=== PATIENT | female | born 1955 | race Two or more races ===

== ENCOUNTER 2024-05-29 10:58 | Inpatient (IN) | payer MEDICARE, OTHER ==
[~2024-05-29] VITALS: Ht 154.9 cm; Wt 79.4 kg
[2024-05-29 12:28] LABS: APPEARANCE,URINE CLEAR (CLEAR); BILIRUBIN,URINE NEGATIVE (NEGATIVE); BLOOD, URINE 1+ Ery/uL (NEGATIVE); COLOR,URINE YELLOW (YELLOW); KETONES,URINE NEGATIVE (NEGATIVE); LEUKOCYTE ESTERASE ,URINE NEGATIVE (NEGATIVE); NITRITE, URINE NEGATIVE (NEGATIVE); PH,URINE 6.5 (5.0-8.0); PROTEIN,URINE NEGATIVE (NEGATIVE); UGLUCOSE NEGATIVE (NEGATIVE); UROBILINOGEN,URINE 0.2 EU/dL (0.2)
[2024-05-29 12:30] LABS: ADD URINE CULTURE NO; BACTERIA,URINE Rare /HPF (None Seen); RBC,URINE 0-2 /HPF (0-2); SQUAMOUS EPITHELIAL CELL,UR Rare /HPF (None Seen); WBC,URINE 0-2 /HPF (0-3)
[2024-05-29 12:44] LABS: BASOPHILS % (AUTO) 0.3 % (0.0-2.0); EOSINOPHILS % (AUTO) 0.4 % (0.0-6.0); HEMATOCRIT 37 % (33-45); HEMOGLOBIN 12.7 g/dL (11.5-14.8); LYMPHOCYTES # (AUTO) 1.4 K/uL (0.8-4.8); LYMPHOCYTES % (AUTO) 16.3 % (20.0-44.0); MEAN CORPUSCULAR HEMOGLOBIN 30 PG (26.0-33.0); MEAN CORPUSCULAR HGB CONC 34 g/dl (31.0-36.0); MEAN CORPUSCULAR VOLUME 87 fL (82-100); MONOCYTES # (AUTO) 0.4 K/uL (0.1-1.30); MONOCYTES % (AUTO) 4.3 % (2.0-12.0); NEUTROPHILS # (AUTO) 6.9 K/uL (1.8-8.9); NEUTROPHILS % (AUTO) 78.7 % (43.0-81.0); PLATELET COUNT (AUTO) 222 K/uL (150-450); RED BLOOD CELL COUNT(AUTO) 4.26 MIL/uL (4.0-5.2); RED CELL DISTRIBUTION WIDTH 13.3 % (11.5-15.0); WHITE BLOOD COUNT (AUTO) 8.7 K/uL (4.3-11.0)
[2024-05-29 12:53] LABS: LACTIC ACID 1.3 mmol/L (0.4-2.0)
[2024-05-29 12:54] LABS: INR 1.04 (0.91-1.10); PARTIAL THROMBOPLASTIN TIME 24.8 SEC (24.3-34.3)
[2024-05-29 12:59] LABS: ALANINE AMINOTRANSFERASE 25 U/L (12-78); ALBUMIN 3.4 g/dL (3.4-5.0); ALKALINE PHOSPHATASE 90 U/L (46-116); ASPARTATE AMINOTRANSFERASE 17 U/L (15-37); BILIRUBIN,DIRECT 0.1 mg/dL (0.0-0.2); BILIRUBIN,TOTAL 0.6 mg/dL (0.2-1.0); CALCIUM, SERUM 8.4 mg/dL (8.5-10.1); CARBON DIOXIDE 31 mmol/L (21-32); CHLORIDE 105 mmol/L (98-107); CREATININE 0.6 mg/dL (0.6-1.3); GLUCOSE 101 mg/dL (74-106); POTASSIUM 3.4 mmol/L (3.5-5.1); SODIUM SERUM 141 mmol/L (136-145); TOTAL PROTEIN, SERUM 6.9 g/dL (6.4-8.2); UREA NITROGEN, BLOOD 8 mg/dL (7-18)
[2024-05-29 13:35] VITALS: BP_SYST 148; BP_SYST 150; BP_SYST 156; BP_DIAS 76; BP_DIAS 84; BP_DIAS 88; TEMP 97.8; O2SAT 97
[2024-05-29] MEDS ORDERED: HYDROCODONE/APAP 5/325MG TABLET PO PRN (15:30)
[2024-05-29] MEDS ORDERED: MAG HYDROX/AL HYDROX/SIMETH 30 ML UDC PO PRN (15:30)
[2024-05-29] MEDS ORDERED: ACETAMINOPHEN 325 MG TABLET PO PRN (15:30)
[2024-05-29] MEDS ORDERED: MAGNESIUM HYDROXIDE 30 ML UDC PO PRN (15:30)
[2024-05-29] MEDS ORDERED: Z GUARD REMEDY 4 OZ OINT TP PRN (15:30)
[2024-05-29] MEDS ORDERED: ZOLPIDEM TARTRATE 5 MG TABLET PO PRN (15:30)
[2024-05-29] MEDS: IV 1/2NS 1000 ML 1,000 ML IV PRN (16:01)
[2024-05-29 16:05] VITALS: BP 122/71; TEMP 97.7; O2SAT 96
[2024-05-29] MEDS: ENOXAPARIN SODIUM 40 MG/0.4 ML DISP.SYRIN SQ SCH (16:06)
[2024-05-29 16:52] LABS: THYROID STIMULATING HORMONE 1.49 uIU/mL (0.358-3.74)
[2024-05-29 20:00] VITALS: BP 133/72; TEMP 97.7; O2SAT 95
[2024-05-29] MEDS: POTASSIUM CHLORIDE 10 MEQ TABLET.SA PO ONE (20:15)
[2024-05-29 21:36] VITALS: BP 146/93; TEMP 97.7; O2SAT 95
[2024-05-30] VITALS: BP 123/73; TEMP 98.1; O2SAT 95
[2024-05-30 04:55] VITALS: BP 142/72
[2024-05-30] MEDS ORDERED: IBUP-1953 PO (05:04)
[2024-05-30 06:26] LABS: BASOPHILS % (AUTO) 0.5 % (0.0-2.0); EOSINOPHILS # (AUTO) 0.2 K/uL (0.0-0.7); EOSINOPHILS % (AUTO) 2.9 % (0.0-6.0); HEMATOCRIT 36 % (33-45); HEMOGLOBIN 12.1 g/dL (11.5-14.8); LYMPHOCYTES # (AUTO) 1.8 K/uL (0.8-4.8); LYMPHOCYTES % (AUTO) 30.2 % (20.0-44.0); MEAN CORPUSCULAR HEMOGLOBIN 30 PG (26.0-33.0); MEAN CORPUSCULAR HGB CONC 34 g/dl (31.0-36.0); MEAN CORPUSCULAR VOLUME 87 fL (82-100); MONOCYTES # (AUTO) 0.4 K/uL (0.1-1.30); MONOCYTES % (AUTO) 6.4 % (2.0-12.0); NEUTROPHILS # (AUTO) 3.6 K/uL (1.8-8.9); PLATELET COUNT (AUTO) 187 K/uL (150-450); RED CELL DISTRIBUTION WIDTH 13.2 % (11.5-15.0); WHITE BLOOD COUNT (AUTO) 5.9 K/uL (4.3-11.0)
[2024-05-30 06:45] LABS: CALCIUM, SERUM 8.4 mg/dL (8.5-10.1); CREATININE 0.5 mg/dL (0.6-1.3); PHOSPHORUS 3.8 mg/dL (2.5-4.9); POTASSIUM 3.3 mmol/L (3.5-5.1)
[2024-05-30] MEDS: PANTOPRAZOLE 40 MG TABLET.DR PO SCH (07:37)
[2024-05-30] MEDS: ONDANSETRON HCL/PF 4 MG/2 ML VIAL IVP PRN (07:57)
[2024-05-30 08:00] VITALS: BP 154/73; TEMP 98.2; O2SAT 96
[2024-05-30] MEDS: POTASSIUM CHLORIDE 20 MEQ TAB.PRT.SR PO SCH (10:51)
[2024-05-30 12:00] VITALS: BP 153/95; TEMP 97.6; O2SAT 96
[2024-05-30] MEDS: IBUPROFEN 400 MG TABLET PO PRN (13:27)
[2024-05-30 16:00] VITALS: BP 134/69; TEMP 98.6; O2SAT 96
== END 2024-05-30 20:49 | disposition short-term general hospital (02) | DRG 70 ==
LOC: ER 11:02 → TELE 12:29
PROVIDERS: ATTEND Nurse Practitioner Acute Care
DX: G93.89 Other specified disorders of brain (principal); G93.41 Metabolic encephalopathy; G93.6 Cerebral edema; W19.XXXA Unspecified fall, initial encounter; Y93.9 Activity, unspecified; Y92.009 Unspecified place in unspecified non-institutional (private) residence as the place of occurrence of the external cause; R41.82 Altered mental status, unspecified; W18.30XA Fall on same level, unspecified, initial encounter; E87.6 Hypokalemia; I10 Essential (primary) hypertension; Z86.011 Personal history of benign neoplasm of the brain; R53.1 Weakness; R22.0 Localized swelling, mass and lump, head
CPT/HCPCS: 36415; 70450-TC; 71045-TC; 80048-TC; 80061-TC; 80076-TC; 81001; 83605-TC; 83735-TC; 84100-TC; 84443-TC; 84484-TC; 85025-TC; 85730-TC; 87040-TC; 87086-TC; 93307-TC; 97110-TC; 97116-TC; 97530-TC; G0378; J1650; J2405; J3490